=== PATIENT | female | born 1985 | race Caucasian/White ===

== ENCOUNTER 2018-01-25 09:51 | Outpatient (REF) | payer MEDICARE, MEDICAID, SELFPAY ==
[2018-01-25 22:05] LABS: Cholesterol 171 mg/dL (50-200); Glucose 76 mg/dL (70-100); HDL Cholesterol 54 mg/dL (40-60); LDL CHOLESTEROL 112 mg/dL (<100); Triglyceride 55 mg/dL (30-150)
== END 2018-01-25 09:52 ==
LOC: NCHCN 09:51
PROVIDERS: PCP Family Medicine; Visit Provider Nurse Practitioner
DX: E66.9 Obesity, unspecified; Z13.1 Encounter for screening for diabetes mellitus; Z13.6 Encounter for screening for cardiovascular disorders
CPT/HCPCS: 80061; 82947; 83721

== ENCOUNTER 2018-02-11 16:13 | Outpatient (REF) | payer MEDICARE, MEDICAID, SELFPAY | END 2018-02-11 16:33 | LOC: NCHCN 16:13 | PROVIDERS: PCP Family Medicine; Visit Provider Nurse Practitioner | DX: N76.0 Acute vaginitis (principal) | CPT/HCPCS: 87480; 87510; 87660 ==

== ENCOUNTER 2018-05-03 01:51 | Outpatient (CLI) | payer MEDICARE, MEDICAID, SELFPAY ==
--- NOTE | 2018-05-09 09:51 | W.NUTCONSULT ---
Date of service: 05/03/18 Time of Service: 10:00 Nutritional Consult ASSESSMENT: Maia presents with a health animal caregiver for nutritional counseling for weight management. She has transitioned into a different living situation six months ago and has gained about 50 pounds in that time frame. The clinical assistant professor reports that in addition to the other efforts the team is making towards weight management for her, they would like to look at her food choices and see if there are any changes to be made there. She is 62 and 172 lbs. She is currently not physically active but there is some work in progress to get her a membership at the [employer]. Dietary recall shows that for breakfast she has pancakes and syrup, orange juice, and yogurt. Lunch is a cooked meal and dinner is a full cooked meal as well such as meat, starch, and vegetable. She also had two glasses of wine in the evening and a biscotti. It was noted that at this time the wine is non-negotiable. NUTRITIONAL DIAGNOSIS: Class 1 obesity related to excess energy intake and physical inactivity as evidenced by BMI of 32.5 kg/m2. INTERVENTION: We discussed making small changes and having reasonable goals such as losing 10% of body weight which is 17 lbs, at least to start. Provided written materials with what 1200 calories looks like in terms of meal planning and gave specific examples. Suggested reducing portions of her carbohydrate foods and snacks and replace those with vegetables and fruits over the next month. Maia verbalized that she can make these changes. MONITORING AND EVALUATION: 1. Maia will return next month and we will monitor her progress on her action plan. 2. Will evaluate nutrition care plan at that time adjust as needed. Time Spent in Nutritional Counseling and Treatment: 32 minutes spent face to face
--- NOTE | 2018-05-09 12:19 | NS.NUTBLAN_ITS ---
Date of service: 05/03/18 Time of Service: 10:00 Nutritional Consult ASSESSMENT: Maia presents with a health landcare facilitator for nutritional counseling for weight management. She has transitioned into a different living situation six months ago and has gained about 50 pounds in that time frame. The support assistant reports that in addition to the other efforts the team is making towards weight management for her, they would like to look at her food choices and see if there are any changes to be made there. She is 62 and 172 lbs. She is currently not physically active but there is some work in progress to get her a membership at the [employer]. Dietary recall shows that for breakfast she has pancakes and syrup, orange juice, and yogurt. Lunch is a cooked meal and dinner is a full cooked meal as well such as meat, starch, and vegetable. She also had two glasses of wine in the evening and a biscotti. It was noted that at this time the wine is non-negotiable. NUTRITIONAL DIAGNOSIS: Class 1 obesity related to excess energy intake and physical inactivity as evidenced by BMI of 32.5 kg/m2. INTERVENTION: We discussed making small changes and having reasonable goals such as losing 10% of body weight which is 17 lbs, at least to start. Provided written materials with what 1200 calories looks like in terms of meal planning and gave specific examples. Suggested reducing portions of her carbohydrate foods and snacks and replace those with vegetables and fruits over the next month. Maia verbalized that she can make these changes. MONITORING AND EVALUATION: 1. Maia will return next month and we will monitor her progress on her action plan. 2. Will evaluate nutrition care plan at that time adjust as needed. Time Spent in Nutritional Counseling and Treatment: 32 minutes spent face to face
== END 2018-05-03 02:11 ==
PROVIDERS: PCP Family Medicine; Visit Provider Dietitian, Registered
DX: E66.9 Obesity, unspecified (principal); Z68.33 Body mass index [BMI] 33.0-33.9, adult; Z71.3 Dietary counseling and surveillance
CPT/HCPCS: 97802

== ENCOUNTER 2018-05-31 02:00 | Outpatient (CLI) | payer MEDICARE, MEDICAID, SELFPAY ==
--- NOTE | 2018-05-31 09:45 | NS.NUTBLAN_ITS ---
Date of service: 05/31/18 Time of service: 1000 Maia returns for follow up nutritional counseling for weight management. She verbalizes that she has decreased her portions and has increased her protein intake. She has been swimming three times per week. Acknowledged Maia's excellent efforts at following through with the action plans that she set out at the previous visit. Her weight today is unchanged however it is noted that her clothes fit better. We discussed that losing inches is also a measurement of improved health. Until the next visit, Maia commits to continue with decreased portions and to move her body daily for 30 minutes, even on the days she does not swim. Total time spent face to face: 20 minutes.
== END 2018-05-31 02:20 ==
PROVIDERS: PCP Family Medicine; Visit Provider Dietitian, Registered
DX: E66.09 Other obesity due to excess calories (principal); Z68.33 Body mass index [BMI] 33.0-33.9, adult; Z71.3 Dietary counseling and surveillance
CPT/HCPCS: 97803

== ENCOUNTER 2019-03-09 12:46 | Emergency (ER) | payer MEDICARE, MEDICAID, SELFPAY ==
[2019-03-09 12:51] VITALS: BP 113/84; PULSE 78; RESP 18; TEMP 36.5; O2SAT 98
--- NOTE | 2019-03-09 13:08 | ED.GENADUL_ITS ---
Discharge Plan Disposition Patient Disposition: HOME Condition: Good Discharge Details Chief Complaint: Abd Prob Clinical Impression: Abdominal discomfort Primary Care Provider: Tiffany Hassan ED Provider: Rehana Guerin Home Meds and New Rx's Prescriptions: New omeprazole 20 mg capsule,delayed release(DR/EC) 20 mg PO DAILY Qty: 14 RF: 0 Continued lamotrigine [Lamictal] 5 MG tablet, chewable dispersible 25 mg PO BID RF: 0 oxybutynin chloride 5 MG tablet 5 mg PO DAILY RF: 0 escitalopram oxalate [Lexapro] 10 MG tablet 10 mg PO DAILY RF: 0 melatonin 1 MG tablet 6 mg PO QHS RF: 0 cholecalciferol (vitamin D3) [Vitamin D3] 1,000 unit Capsule 1,000 unit PO DAILY RF: 0 fluoride (sodium) 1.1 % Paste 1 applic DENTAL DAILY RF: 0 omega 6-ljz-bxc-fish oil [Fish Oil] 1,000 mg (120 mg-180 mg) Capsule 2 cap PO DAILY RF: 0 Discharge Instructions Instructions: Gastroesophageal Reflux Disease (ED) Additional Instructions: Encourage hydration. Please take omeprazole daily as prescribed. Try to avoid foods and drinks that bother this such as caffeine, alcohol, acidic foods. Please do not take anti-inflammatories such as ibuprofen as it may also increase her discomfort. Please follow-up with primary care in 1 week for reevaluation. If you develop increased pain, vomiting, inability stay hydrated or the new/worsening symptoms please seek care urgently once again. Referrals: Tiffany Hassan [Primary Care Provider] - Medical Decision Making Patient is a 33-year-old female, brought in by home care provider, with chief complaint of acid reflux. She reports she has had issues with GERD historically and has used antacids with good fast. States that this been bothering her for the past 3 days. Has not tried any antacids or rbkx-vkv-xapevcy medications. States that she had some dry heaves this morning but no vomiting. Has had no change in her appetite. Denies any abdominal pain but states that it has been turning. Denies any fevers or chills. No previous abdominal surgeries. States that she has been avoiding some types of foods to help improve this but is unable to identify exactly what foods can set this off for her. She denies any change in her bowel habits, no dark or bloody stools. Denies any dysuria, hematuria, increased urgency and urgency. Denies any back pain. On exam, patient is resting comfortably. She has a benign abdominal exam. No tenderness is elicited. Vital signs within normal limits. Discussed treatment options with the patient. She believes this is an exacerbation of her underlying acid reflux which she had historically and would like medication management. She was challenged with a GI cocktail and had resolution of her symptoms. Plan to treat with omeprazole. I advised close follow-up with primary care. She is not febrile, has no abdominal tenderness, has not been vomiting, no change in appetite, further laboratory evaluation or imaging is not warranted at this time. As his pain is the same as her previous, will treat as such. All of her questions and concerns were addressed she is in agreement this plan. I also discussed this plan with her home care provider. [facility] General Mode of arrival: ambulatory . Date/Time Provider Initiated Documentation: 03/09/19 13:08 . Limitations to Documentation: no limitations . Information obtained by: patient and RN notes reviewed . History of Present Illness 33 year old F presents to the emergency department with the chief complaint of Acid reflux, described as moderate and similar to prior episodes, with intensity rated at 5. Quality is described as burning, and is localized to the abdomen. Patient reports no radiation. Patient started experiencing this day(s) (3) and it has been constant. No relieving factors improve symptom(s), No exacerbating factors reported . Patient notes nausea/vomiting (states she had some dry heaves this morning x 1); denies chest pain, cough, diaphoresis, fever/chills, headaches, loss of appetite, rash and shortness of breath. Patient did receive the following treatments prior to arrival, none Related Data Home Medications Medication Instructions Recorded Confirmed escitalopram oxalate [Lexapro] 10 mg PO DAILY 09/01/17 03/09/19 lamotrigine [Lamictal] 25 mg PO BID 09/01/17 03/09/19 melatonin 6 mg PO QHS 09/01/17 03/09/19 oxybutynin chloride 5 mg PO DAILY 09/01/17 03/09/19 cholecalciferol (vitamin D3) 1,000 unit PO DAILY 03/09/19 03/09/19 [Vitamin D3] fluoride (sodium) 1 applic DENTAL DAILY 03/09/19 03/09/19 omega 6-fhq-koe-fish oil [Fish Oil] 2 cap PO DAILY 03/09/19 03/09/19 omeprazole 20 mg PO DAILY #14 cap 03/09/19 Previous Rx's Medication Instructions Recorded omeprazole 20 mg PO DAILY #14 cap 03/09/19 Allergies Allergy/AdvReac Type Severity Reaction Status Date / Time gluten Allergy Unverified 03/09/19 12:56 cefaclor [From Ceclor] AdvReac Intermediate Unverified 03/09/19 12:56 General Stated Complaint: Abd Prob ANITA: 3 Review of Systems Constitutional Constitutional: Reports as per HPI, Denies chills, Denies fatigue, Denies fever(s) and Denies headache(s) ENT Ears, Nose, Mouth, and Throat: Denies headache(s) Cardiovascular Cardiovascular: Reports as per HPI, Denies chest pain and Denies dyspnea Respiratory Respiratory: Reports as per HPI, Denies cough and Denies dyspnea Gastrointestinal Gastrointestinal: Reports as per HPI Musculoskeletal Musculoskeletal: Reports as per HPI and Denies back pain Integumentary/Breasts Skin/Breast: Reports as per HPI and Denies rash Neurologic Neurologic: Reports as per HPI and Denies headache(s) Endocrine Endocrine: Denies fatigue PFSH Social History Smoking/Tobacco Use Status: Never Alcohol Intake: current Alcohol Intake frequency: 0-2 drinks per day Do you feel safe at home: Yes Exam Const General: cooperative, healthy appearing, comfortable, no acute distress and well developed Nutritional Appearance: average body habitus and well nourished Orientation: alert and awake [facility] Head: normal to inspection Face and sinus: normal facial exam Mouth: oral mucosae normal, lip normal, tongue normal and moist mucous membranes Teeth and gingiva: dentition normal Throat: posterior oropharynx normal, tonsils normal and uvula midline Neck Neck: normal visual inspection, full ROM, no lymphadenopathy, no meningeal signs, trachea midline, supple and no anterior neck swelling Resp Effort & Inspection: normal respiratory effort, able to speak in complete sentences and no respiratory distress Auscultation: clear to auscultation bilaterally, no rales, no rhonchi and no wheezes Cardio Rate: regular rate Rhythm: regular rhythm Heart Sounds: S1 normal and S2 normal GI Inspection: normal to inspection, no edema and non-distended Palpation: soft, no hepatosplenomegaly, not firm, no guarding, no hepatosplenomegaly, no hernias, no masses, not rigid and nontender Percussion: normal to percussion Auscultation: normal bowel sounds Back/Spine/Pelvis Back: no CVA tenderness Skin General skin exam: no rashes or lesions noted Trauma: no lacerations or abrasions Neuro General: alert and awake Cognition: normal cognition Speech: speech normal Gait: normal gait Psych Appearance: grossly normal and well kempt Mental Status: mental status grossly normal Speech and Movement: speech and movement normal Course Vital Signs Vital signs: Vital Signs Temperature 36.5 C 03/09/19 12:51 Pulse 78 03/09/19 12:51 Respiratory Rate 18 03/09/19 12:51 Blood Pressure 113/84 03/09/19 12:51 Pulse Oximetry 98 03/09/19 12:51 Temperature 36.5 C 03/09/19 12:51 Temperature Source Skin 03/09/19 12:51 Pulse 78 03/09/19 12:51 Respiratory Rate 18 03/09/19 12:51 Respiratory Effort Non-Labored 03/09/19 12:54 Blood Pressure 113/84 03/09/19 12:51 Blood Pressure Position Sitting 03/09/19 12:51 Pulse Oximetry 98 03/09/19 12:51 Oxygen Delivery Method Room Air 03/09/19 12:51 Oxygen Flow Rate 0 03/09/19 12:51 Pain Level 6 03/09/19 12:51
[2019-03-09 13:51] VITALS: BP 113/84; PULSE 78; RESP 18; TEMP 36.5; O2SAT 98
== END 2019-03-09 13:49 | disposition home or self-care (01) ==
PROVIDERS: Emergency Provider Physician Assistant; PCP Family Medicine
DX: K21.9 Gastro-esophageal reflux disease without esophagitis (principal)
CPT/HCPCS: 99283

== ENCOUNTER 2019-06-26 01:31 | Outpatient (CLI) | payer MEDICARE, MEDICAID, SELFPAY ==
--- NOTE | 2019-06-26 07:46 | DI.US_ITS ---
EXAM: US PELVIS CLINICAL HISTORY: Menorrhagia, N92.0 excessive/frequent regular cycle TECHNIQUE: Ultrasound performed using standard protocol. COMPARISON: No exams were available for comparison FINDINGS: Pelvic ultrasound was performed transabdominally. Uterus is unremarkable in appearance with a 4 mil limeter, grossly homogeneous endometrial stripe. Ovaries are unremarkable in appearance. No free fl uid in the cul-de-sac. Limited scanning of the kidneys is unremarkable. IMPRESSION: Negative pelvic ultrasound, transabdominal scanning only.
== END 2019-06-26 01:51 ==
PROVIDERS: PCP Nurse Practitioner Family; Visit Provider Obstetrics & Gynecology
DX: N92.0 Excessive and frequent menstruation with regular cycle (principal)
CPT/HCPCS: 76856

== ENCOUNTER 2019-07-29 10:36 | Outpatient (CLI) | payer MEDICARE, MEDICAID, SELFPAY ==
[2019-07-29 12:24] LABS: HCT 40.3 % (36.0-46.0); HGB 13.7 g/dL (12.0-15.5); Mean Corpuscular Hemoglobin 31.3 pg (27.0-33.0); Mean Platelet Volume 10.4 fL (8.0-11.0); Platelet Count 280 x1000/uL (130-400); RBC 4.38 m/cumm (4.00-5.20); RBC Distribution Width 13.4 % (11.7-14.6); White Blood Cell Count 5.94 k/cumm (4.4-10.8)
== END 2019-07-29 10:56 ==
PROVIDERS: PCP Nurse Practitioner Family; Visit Provider Obstetrics & Gynecology
DX: N92.0 Excessive and frequent menstruation with regular cycle (principal); Z30.2 Encounter for sterilization; Z01.818 Encounter for other preprocedural examination; Z01.812 Encounter for preprocedural laboratory examination
CPT/HCPCS: 36415; 85027; 86850; 86900; 86901

== ENCOUNTER 2019-07-30 06:05 | Day surgery (SDC) | payer MEDICARE, MEDICAID, SELFPAY ==
[2019-07-29 10:55] VITALS: BP 114/47; PULSE 69; TEMP 36.9
--- NOTE | 2019-07-29 12:05 | NUR.NOTE ---
Pt. presented to [facility] with caregiver Yoly Willson. Pt. does have a strong history of situational anxiety and anxiety regarding the upcoming procedure. Pt. met with Bradly Keys and Arti Baeza to formuate a plan to lessen anxiety, and PRN anti-anxiety medication is to be called in at disposal of pt. use to take night before surgery and morning of if she desires. Plan was made with Ray and pt. on how she would like to proceed ti limit anxiety. Pt. does well when there are not a lot of people in the room with her. A suggestion was made by caregiver, that herself, and possibly two other people only in room to help alleviate anxiety. Nursing Note:
[2019-07-30] VITALS (8 sets, daily range): BP systolic 94–117; BP diastolic 47–73; PULSE 55–69; RESP 12–18; TEMP 36.3–36.9; O2SAT 97–100
[2019-07-30] MEDS: Lactated Ringers 1,000 ML 125 ML IV (07:20)
--- NOTE | 2019-07-30 08:07 | FALL_PTH ---
PATIENT: Maia Jesus LOC: [facility] U#:[id number] AGE/SX: 34/F ROOM: RE07/30/[address]: Jerry Vee MD : [id number] BED: DIS: 07/30/2019 SPEC #: [id number] RECD: 07/30/19 12:35 STATUS: JUAN ANTONIO REQ #: [id number] LILLIAN: 07/30/19 08:[address]: Jerry Vee DEPT: Surgical Specimen RECD BY: Abby Livingston ENTERED: 07/30/19 12:36 SP TYPE: Fall OTHR DR: Fatemeh Rsos Tissues: 1 - FALLOPIAN TUBE (STERILIZATION) 2 - ENDOMETRIUM BX/CURRETTE Procedures: GROSS AND MICRO LEVEL 2 GROSS AND MICRO LEVEL 4 Comments: [id number]
[2019-07-30] MEDS: Bupivacaine 0.25% Pres-Free 30 ML VIAL ×2 (08:16→08:28)
--- NOTE | 2019-07-30 08:46 | ROE_ITS ---
Date of service: 07/30/19 Time of Service: 08:46 Operative Note Operative Note DATE OF PROCEDURE: 07/30/19 PRE-OP DIAGNOSIS: 1. Desire for permanent sterilization 2. Menorrhagia POST-OP DIAGNOSIS: same PROCEDURE: 1. Laparoscopic bilateral salpingectomy 2. Hysteroscopy D&C 3. NovaSure endometrial ablation SURGEON: Jerry Vee ASSISTING SURGEON: Anni Cortez ANESTHESIA: GETA and local ESTIMATED BLOOD LOSS: 10 PATHOLOGY: other (1. Endometrial curettings 2. Bilateral fallopian tubes) COMPLICATIONS: None Patient was transported to: PACU Patient's condition: stable Findings: 1. Normal laparoscopic exam. Normal uterus, tubes and ovaries. 2. Small endometrial polyp on hysteroscopic exam. Normal uterine cavity Procedure Description: The patient was taken to the operating room and after adequate general anesthesia was obtained. The patient was placed in lithotomy position. The bladder was straight cathed for approximately 20 cc of clear urine. A weighted speculum was placed the vagina with good visualization of the cervix. A mobile mum uterine manipulator was placed to the cervix and secured. The patient was repositioned. The surgeon was regloved. Attention was then turned to the patient's abdomen. The skin and subcutaneous tissues at the umbilicus were infiltrated with 0.25% Marcaine solution. A small infraumbilical skin incision was then made with a #15 blade scalpel. Sharp dissection was carried down to the underlying layer of fascia. The fascia was grasped and elevated with 2 Jane clamps. The fascia was incised sharply with a scalpel and the peritoneum was entered with a hemostat. S retractors were placed. The fascia was tagged with 2 sutures of 0 Vicryl. A 10 mm balloon port trocar was advanced through the incision and secured in place. A pneumoperitoneum to approximately 15mmHgwith carbon dioxide was established. Two 5 mm ports were placed under direct visualization in the right and left lower quadrants. The right fallopian tube was grasped and elevated and dissection was carried across the mesosalpinx with the LigaSure device. Dissection was carried to the proximal tube which was transected. The fallopian tube was removed from the abdomen. A similar procedure was carried out. Both fallopian tubes were submitted to pathology. Excellent hemostasis was noted. The 5 mm trochars were removed. The abdomen was desufflated and the umbilical port was removed. The fascia at the umbilicus was closed with the 2 previously placed sutures of 0 Vicryl. Each skin incision was closed with interrupted sutures of 4-0 Monocryl and Dermabond was applied. The patient was repositioned. A weighted speculum was reinserted in the vagina. The cervix was well visualized and the anterior lip was grasped with a single- tooth tenaculum. The cervix was gently dilated with Yusuf dilators and a 5 mm hysteroscope with normal saline distention media was advanced. There was only a small benign-appearing endometrial polyp on the posterior surface of the uterus. The remainder of the endometrial cavity was normal in appearance. A sharp curettage was performed and endometrial curettings were submitted to pathology. The cavity length was measured at 6.5 cm and cavity width was measured at 3.8 cm. The NovaSure device was inserted without difficulty and passed cavity assessment. The device was activated and completed its cycle normally. The NovaSure was removed. Excellent hemostasis was noted. All instrumentation was removed. The procedure was concluded at this point. Sponge, lap and needle counts were correct at the conclusion of the procedure. The patient was transferred to PACU stable condition.
--- NOTE | 2019-07-30 08:53 | W.PM.DSUDISC ---
Discharge Plan Disposition Patient Disposition: HOME Condition: Good Discharge Details Attending Provider: Jerry Vee Primary Care Provider: Fatemeh Ross Home Meds and New Rx's Prescriptions: New hydrocodone-acetaminophen [[place]] 5-325 mg tablet 1 tab PO Q4H PRN (Reason: pain) Qty: 20 RF: 0 Continued alprazolam [Xanax] 0.5 mg tablet 0.5 mg PO .COMPLEX Qty: 2 RF: 0 medroxyprogesterone [Depo-Provera] 150 mg/mL suspension 150 mg IM [id number] RF: 0 lamotrigine [Lamictal] 5 mg tablet, chewable dispersible 25 mg PO BID Qty: 6 RF: 0 oxybutynin chloride 5 mg tablet 5 mg PO DAILY Qty: 3 RF: 0 escitalopram oxalate [Lexapro] 10 MG tablet 10 mg PO DAILY RF: 0 melatonin 1 MG tablet 6 mg PO QHS RF: 0 cholecalciferol (vitamin D3) [Vitamin D3] 1,000 unit Capsule 1,000 unit PO DAILY RF: 0 fluoride (sodium) 1.1 % Paste 1 applic DENTAL DAILY RF: 0 omega 0-but-wrn-fish oil [Fish Oil] 1,000 mg (120 mg-180 mg) Capsule 2 cap PO DAILY RF: 0 omeprazole 20 mg capsule,delayed release(DR/EC) 20 mg PO DAILY Qty: 14 RF: 0 hydrocortisone 1 % Cream 1 applic topical PRN PRNRF: 0 Discharge Instructions Stand Alone Forms: [facility] Post Gynecology Surgery, Annika Espinal ([facility]) Discharge Data Discharge Date/Time-TO BE ENTERED AT DEPARTURE: 07/30/19 11:52 DS: Diagnosis Discharge Diagnosis (1) Sterilization: Status: Acute (2) Menorrhagia: Status: Acute
[2019-07-30] MEDS: fentaNYL 100 MCG/2 ML VIAL IVP (09:20)
[2019-07-30] MEDS: HYDROcodone 5/Acetaminophen 325 TAB PO (10:33)
--- NOTE | 2019-07-31 20:45 | W.PM.OP ---
Date of service: 07/30/19 Time of Service: 09:00 Operative Note Operative Note DATE OF PROCEDURE: 07/30/19 PRE-OP DIAGNOSIS: 1. Desire for permanent sterilization 2. Menorrhagia POST-OP DIAGNOSIS: same PROCEDURE: 1. Laparoscopic bilateral salpingectomy 2. Hysteroscopy D&C 3. NovaSure endometrial ablation SURGEON: Jerry Vee ASSISTING SURGEON: Anni Cortez ANESTHESIA: GETA and local ESTIMATED BLOOD LOSS: 10 PATHOLOGY: other (1. Endometrial curettings 2. Bilateral fallopian tubes) Patient was transported to: PACU Patient's condition: stable Implants: 1. Laparoscopic bilateral salpingectomy 2. Hysteroscopy D&C 3. NovaSure endometrial ablation Findings: 1. Normal uterus, tubes and ovaries. 2. Normal hysteroscopic exam with the exception of a small polyp on the posterior wall. Procedure Description: The patient was taken to the operating room and after adequate general anesthesia was obtained the patient was placed in lithotomy position. The patient was prepped and draped in the usual sterile manner. The bladder was straight cathed for approximately 10 cc of clear urine. A [employer] uterine manipulator was placed through the cervix. Attention was then turned to the patient's abdomen. The skin and subcutaneous tissues at the umbilicus were infiltrated with 0.25% Marcaine solution. A small infraumbilical skin incision was then made with a #15 scalpel. Sharp dissection was carried down to the underlying layer of fascia. The fascia was grasped and elevated with 2 Jane clamps. The fascia was incised with a scalpel and peritoneum entered sharply with a hemostat. Two S retractors were placed. Two sutures of 0 Vicryl were placed on either side of the fascial incision. A 10 mm balloon trocar was inserted and a pneumoperitoneum to approximately 15 mmHg was established. Two 5 mm ports were placed under direct visualization in the right lower and left lower quadrants. The uterus, tubes and ovaries were noted to be normal in appearance. Dissection was first carried across the right mesosalpinx with the LigaSure device. Dissection was carried to the proximal fallopian tube which was transected. The fallopian tube was removed from the abdomen. Attention was then turned to the opposite side where a similar procedure was carried out. Excellent hemostasis was noted. Both fallopian tubes were submitted to pathology. The 5 mm trochars were removed under direct visualization. The abdomen was desufflated. The 10 mm umbilical trocar was removed. The fascia at the umbilicus was closed with the 2 previously placed sutures of 0 Vicryl. Each skin incision was closed with interrupted sutures of 4-0 Monocryl and Dermabond was applied. The patient was repositioned and attention was turned to the vaginal portion of this procedure. A weighted speculum was placed in the vagina with good visualization of the cervix. A paracervical block with 0.25% Marcaine solution was instilled. The cervix was gently dilated with Yusuf dilators. A 5 mm 30 degree hysteroscope with normal saline distention media was advanced without difficulty. Good visualization of the endometrial cavity was obtained. The cavity was essentially normal in appearance with the exception of a small polyp along the posterior wall. A sharp curettage was performed and specimen was submitted to pathology. The cavity length was measured at 6.8 cm and cavity with measured at 3.8 cm after insertion of the NovaSure device. The cavity test was successful and the device was activated. When the burn cycle was completed all instrumentation was removed. No active bleeding was noted. The procedure was concluded at this point. Sponge, lap and needle counts were correct at the occlusion of the procedure. The patient was extubated and transferred to PACU in stable condition.
== END 2019-07-30 11:52 | disposition home or self-care (01) ==
PROVIDERS: PCP Nurse Practitioner Family; Visit Provider Obstetrics & Gynecology
PROC: 0UDB8ZZ Extraction of Endometrium, Via Natural or Artificial Opening Endoscopic (ICD-10-PCS; CPT 58558; principal; 2019-07-30 07:30)
PROC: (CPT 58353; 2019-07-30 07:30)
PROC: (CPT 58661; 2019-07-30 07:30)
DX: N92.0 Excessive and frequent menstruation with regular cycle (principal); Z30.2 Encounter for sterilization; N84.0 Polyp of corpus uteri
CPT/HCPCS: 58661; 58563; 88305; 88302; J0131; J1100; J1885; J2405; J3010

== ENCOUNTER 2020-07-02 20:03 | Outpatient (REF) | payer MEDICARE, MEDICAID, SELFPAY | END 2020-07-02 20:04 | disposition home or self-care (01) | LOC: NCHCN 20:03 | PROVIDERS: PCP Nurse Practitioner Family; Visit Provider Nurse Practitioner Family | DX: R10.2 Pelvic and perineal pain (principal) | CPT/HCPCS: 87480; 87510; 87660 ==

== ENCOUNTER 2021-03-22 08:50 | Outpatient (REF) | payer MEDICARE, MEDICAID, SELFPAY ==
[2021-03-22 19:39] LABS: ALT 51 U/L (14-59); AST 26 U/L (15-37); BUN 14 mg/dL (7-18); CO2 26.2 mmol/L (21.0-32.0); CREATININE 0.8 mg/dL (0.55-1.02); Calcium 9.7 mg/dL (8.5-10.1); Chloride 99 mmol/L (98-107); Glucose 89 mg/dL (74-106); Potassium 4.4 mmol/L (3.5-5.1)
[2021-03-22 20:57] LABS: Sodium 139 mmol/L (136-145)
[2021-03-22 20:58] LABS: Anion Gap 13.8 mmol/L (3-11)
== END 2021-03-22 08:51 | disposition home or self-care (01) ==
LOC: NCHCN 08:50
PROVIDERS: PCP Nurse Practitioner Family; Visit Provider Nurse Practitioner Family
DX: Z79.899 Other long term (current) drug therapy (principal)
CPT/HCPCS: 80048; 84450; 84460

== ENCOUNTER → 2023-07-30 14:13 | Outpatient (BNVA) | payer MEDICARE, MEDICAID, SELFPAY | PROVIDERS: PCP Nurse Practitioner Family; Referring Provider Nurse Practitioner Family; Visit Provider Podiatrist | DX: L03.90 Cellulitis, unspecified (principal); L60.0 Ingrowing nail; M79.671 Pain in right foot; M79.672 Pain in left foot | CPT/HCPCS: 11750 ==

== ENCOUNTER 2024-06-17 18:27 | Outpatient (REF) | payer MEDICARE, MEDICAID, SELFPAY ==
[2024-06-17 15:25] LABS: HCT 38.3 % (36.0-46.0); HGB 13.2 g/dL (11.2-15.7); MCH 32.4 pg (27.0-33.0); MCHC 34.5 % (32.0-36.0); MCV 94 fL (80-95); MPV 11.1 fL (8.0-11.0); Platelet Count 235 10^3/uL (130-400); RBC 4.08 10^6/uL (3.93-5.22); RDW 13.5 % (11.7-14.6); RDW-SD 46.7 fL; WBC 4.18 10^3/uL (4.4-10.8)
[2024-06-17 15:41] LABS: ALT 67 U/L (14-59); AST 41 U/L (15-37); Albumin 4.1 g/dL (3.4-5.0); Alkaline Phosphatase 79 U/L (46-116); Anion Gap 7.9 mmol/L (3-11); BUN 10 mg/dL (7-18); Bilirubin, Total 0.35 mg/dL (0.2-1.0); CO2 27.1 mmol/L (21.0-32.0); CREATININE 0.8 mg/dL (0.55-1.02); Calcium 9.9 mg/dL (8.5-10.1); Calculated LDL 114 mg/dL (<100); Chloride 107 mmol/L (98-107); Cholesterol 196 mg/dL (<200); Estimated GFR 96.66 (mL/min/1.73m2); Glucose 90 mg/dL (74-106); HDL Cholesterol 72 mg/dL (40-60); Sodium 142 mmol/L (136-145); Total Protein 7.4 g/dL (6.4-8.2); Triglyceride 52 mg/dL (<150)
[2024-06-18 20:40] LABS: Tissue Transglutaminase Ab IgG 4.2 U/mL
== END 2024-06-17 18:28 | disposition home or self-care (01) ==
LOC: NCHCN 18:27
PROVIDERS: PCP Nurse Practitioner Family; Visit Provider Nurse Practitioner Family
DX: Z13.220 Encounter for screening for lipoid disorders (principal); K21.9 Gastro-esophageal reflux disease without esophagitis
CPT/HCPCS: 80053; 80061; 85027; 86364

== ENCOUNTER → 2024-11-03 15:15 | Outpatient (BNVA) | payer MEDICARE, MEDICAID, SELFPAY | PROVIDERS: PCP Nurse Practitioner Family; Referring Provider Nurse Practitioner Family; Visit Provider Podiatrist | DX: L60.0 Ingrowing nail (principal); M79.672 Pain in left foot; L03.032 Cellulitis of left toe | CPT/HCPCS: 11750 ==

== ENCOUNTER → 2024-11-17 14:00 | Outpatient (BNVA) | payer MEDICARE, MEDICAID, SELFPAY | PROVIDERS: PCP Nurse Practitioner Family; Referring Provider Nurse Practitioner Family; Visit Provider Podiatrist | DX: L60.0 Ingrowing nail (principal); M79.672 Pain in left foot; L03.032 Cellulitis of left toe | CPT/HCPCS: 99213 ==

== ENCOUNTER 2025-03-31 10:28 | Outpatient (REF) | payer MEDICARE, MEDICAID, SELFPAY ==
[2025-03-31 15:46] LABS: ALT 86 U/L (14-59); AST 69 U/L (15-37); Albumin 4.2 g/dL (3.4-5.0); Alkaline Phosphatase 98 U/L (46-116); Anion Gap 11.1 mmol/L (3-11); BUN 13 mg/dL (7-18); Bilirubin, Total 0.4 mg/dL (0.2-1.0); CO2 23.9 mmol/L (21.0-32.0); Calcium 9.5 mg/dL (8.5-10.1); Chloride 105 mmol/L (98-107); Glucose 95 mg/dL (74-106); Potassium 4.3 mmol/L (3.5-5.1); Sodium 140 mmol/L (136-145); Total Protein 7.4 g/dL (6.4-8.2)
== END 2025-03-31 10:29 | disposition home or self-care (01) ==
LOC: NCHCN 10:28
PROVIDERS: PCP Nurse Practitioner Family; Visit Provider Nurse Practitioner Family
DX: R79.89 Other specified abnormal findings of blood chemistry (principal)
CPT/HCPCS: 80053

== ENCOUNTER 2025-04-21 16:28 | Outpatient (REF) | payer MEDICARE, MEDICAID, SELFPAY | END 2025-04-21 16:29 | disposition home or self-care (01) | LOC: LBN 16:28 | PROVIDERS: PCP Nurse Practitioner Family; Visit Provider Nurse Practitioner Acute Care | DX: J02.9 Acute pharyngitis, unspecified (principal) | CPT/HCPCS: 87077; 87070 ==

== ENCOUNTER → 2025-04-27 03:48 | Outpatient (CLI) | payer MEDICARE, MEDICAID, SELFPAY ==
--- NOTE | 2025-04-27 | DI.US_ITS ---
Exam(s) US ABDOMEN LIMITED EXAM: US ABDOMEN LIMITED CLINICAL HISTORY: ELEVATED LFT'S,R79.89 TECHNIQUE: Ultrasound abdomen performed using standard protocol. COMPARISON: US US PELVIS from 06/26/2019 FINDINGS: There is no ascites evident. LIVER: There are no hepatic lesions evident nor dilatation of intrahepatic ducts. GALLBLADDER/BILIARY: There are no gallstones. No gallbladder wall edema nor pericholecystic fluid. The common hepatic duct isnot dilated, measuring 5mm at the level of yon hepatis. PANCREAS: There is no evidence of pancreatic mass nor dilatation of the pancreatic duct. RIGHT KIDNEY:No evidence of solid mass, calculus, nor hydronephrosis. No cortical cysts evident. IMPRESSION: 1. No evidence of cholelithiasis nor dilatation of the biliary tree. 2. No other significant ultrasound findings in the right upper quadrant. 3. There is no ascites. DATA REPOSITORY:
== END ==
LOC: DI 03:48
PROVIDERS: PCP Nurse Practitioner Family; Visit Provider Nurse Practitioner Family
DX: R79.89 Other specified abnormal findings of blood chemistry (principal)
CPT/HCPCS: 76705